=== PATIENT | female | born 2000 | race Caucasian/White ===

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

== ENCOUNTER 2018-02-02 21:40 | Emergency (ER) | payer OTHER ==
[~2018-02-02] VITALS: Ht 162.6 cm; Wt 73.5 kg
[2018-02-02 22:48] LABS: PLATELET COUNT 244 K/uL (152-353)
[2018-02-02 23:05] VITALS: BP 117/66; TEMP 98.9
== END 2018-02-02 23:05 | disposition home or self-care (01) ==
LOC: ED 21:40
DX: S80.861A Insect bite (nonvenomous), right lower leg, initial encounter (principal); R22.41 Localized swelling, mass and lump, right lower limb; W57.XXXA Bitten or stung by nonvenomous insect and other nonvenomous arthropods, initial encounter
CPT/HCPCS: 36415; 85027; 96372; 99283; J0696

== ENCOUNTER 2019-03-06 13:23 | Emergency (ER) | payer OTHER ==
[~2019-03-06] VITALS: Ht 162.6 cm; Wt 77.1 kg
[2019-03-06 14:36] VITALS: BP 103/59; TEMP 98
== END 2019-03-06 14:42 | disposition home or self-care (01) ==
LOC: ED 13:23
DX: M25.512 Pain in left shoulder (principal); S40.012A Contusion of left shoulder, initial encounter; W01.0XXA Fall on same level from slipping, tripping and stumbling without subsequent striking against object, initial encounter
CPT/HCPCS: 96372; 99282; 99283; J1885

== ENCOUNTER 2019-12-09 19:29 | Emergency (ER) | payer OTHER ==
[~2019-12-09] VITALS: Ht 162.6 cm; Wt 80.7 kg
[2019-12-09 20:57] VITALS: BP 116/64; TEMP 98.6
== END 2019-12-09 20:57 | disposition home or self-care (01) ==
LOC: ED 19:29
DX: S63.682A Other sprain of left thumb, initial encounter (principal); X58.XXXA Exposure to other specified factors, initial encounter; Y93.72 Activity, wrestling; Y92.89 Other specified places as the place of occurrence of the external cause
CPT/HCPCS: 99282

== ENCOUNTER 2020-08-27 19:54 | Emergency (ER) | payer OTHER ==
[~2020-08-27] VITALS: Ht 167.6 cm; Wt 77.1 kg
[2020-08-27 20:27] LABS: PLATELET COUNT 209 K/uL (152-353)
[2020-08-27 20:39] LABS: POTASSIUM 3.9 mmol/L (3.6-5.2)
[2020-08-27 21:49] VITALS: BP 105/52; TEMP 97.9
== END 2020-08-27 21:50 | disposition home or self-care (01) ==
LOC: ED 19:54
PROVIDERS: Hospitalist
DX: J06.9 Acute upper respiratory infection, unspecified (principal); R19.7 Diarrhea, unspecified; Z03.818 Encounter for observation for suspected exposure to other biological agents ruled out; F17.210 Nicotine dependence, cigarettes, uncomplicated
CPT/HCPCS: 36415; 80053; 85027; 87502; 87635; 87651; 99283; U0003

== ENCOUNTER 2021-01-06 13:54 | Emergency (ER) | payer OTHER ==
[~2021-01-06] VITALS: Ht 167.6 cm; Wt 70.8 kg
[2021-01-06 14:39] LABS: PLATELET COUNT 238 K/uL (152-353)
[2021-01-06 14:50] LABS: POTASSIUM 3.6 mmol/L (3.6-5.2)
[2021-01-06 15:29] VITALS: BP 112/63; TEMP 99.1
== END 2021-01-06 15:41 | disposition home or self-care (01) ==
LOC: ED 13:54
PROVIDERS: Emergency Medicine Emergency Medical Services
DX: R55 Syncope and collapse (principal); E86.0 Dehydration; F19.10 Other psychoactive substance abuse, uncomplicated; Z03.818 Encounter for observation for suspected exposure to other biological agents ruled out
CPT/HCPCS: 36415; 80053; 80307; 81000; 81025; 83735; 85027; 87502; 87635; 93005; 96360; 99284; U0003

== ENCOUNTER 2023-04-16 13:26 | Emergency (ER) | payer OTHER ==
[~2023-04-16] VITALS: Ht 167.6 cm; Wt 74.8 kg
[2023-04-16 13:35] VITALS: TEMP 98.2
[2023-04-16 14:34] LABS: PLATELET COUNT 213 K/uL (152-353)
[2023-04-16 15:49] VITALS: BP 124/82
== END 2023-04-16 15:49 | disposition home or self-care (01) ==
LOC: ED 13:26
PROVIDERS: Family Medicine
DX: J32.9 Chronic sinusitis, unspecified (principal); B97.89 Other viral agents as the cause of diseases classified elsewhere; R51.9 Headache, unspecified
CPT/HCPCS: 85027; 87502; 87651; 99282